=== PATIENT | female | born 1940 | race Caucasian/White ===

== ENCOUNTER 2016-11-26 16:05 | Inpatient (IN) | payer MEDICARE, OTHER ==
[~2016-11-26 16:05] MED LIST: LIDOCAINE 2% SYR 5 ML IV ONE; PROPOFOL 50ML PER ML IV ONE
[2016-11-26] MEDS ORDERED: OPTIRAY 350 100 ML VIAL HMH IV ONE (16:06)
[2016-11-26] MEDS ORDERED: DILAUDID 1 MG/ML AMP ONE (21:41)
[2016-11-26] MEDS ORDERED: ONDANSETRON 4 MG VIAL ONE (21:41)
[2016-11-26] MEDS ORDERED: SODIUM CHLORIDE 0.9% 1,000 ML ONE (22:42)
[2016-11-26] MEDS ORDERED: PIPER/TAZO 3.375 GM PYXIS ONE (22:48)
[2016-11-26] MEDS ORDERED: SODIUM CHLORIDE 0.9% 100 ML IV ONE (22:49)
[2016-11-26] MEDS ORDERED: SALINE FLUSH 10 ML FLUSH PRN (23:05)
[2016-11-27 00:45] VITALS: RESP 18
[2016-11-27] MEDS ORDERED: ONDANSETRON 4 MG VIAL ONE (01:08)
[2016-11-27] MEDS ORDERED: ONDANSETRON 4 MG VIAL IV PUSH PRN (04:45)
[2016-11-27] MEDS: SODIUM CHLORIDE 0.9% FLUSH BAG 500 ML IV SCH (06:00)
[2016-11-27 07:38] VITALS: BP_SYST 135; RESP 16; TEMP 97.7
[2016-11-27] MEDS ORDERED: KCL CR 20 MEQ TAB PO ONE (08:15)
[2016-11-27] MEDS: FAMOTIDINE 20 MG INJ IV SCH ×2 (08:37→08:40)
[2016-11-27] MEDS: MORPHINE 2 MG/ML SYR IV PRN ×3 (08:38→16:59)
[2016-11-27] MEDS: METRONIDAZOLE 500MG/100ML 100 ML IV SCH ×4 (08:41→23:05)
[2016-11-27] MEDS: SALINE FLUSH 10 ML FLUSH SCH ×2 (08:41→19:49)
[2016-11-27] MEDS ORDERED: LEVOFLOXACIN 750 MG/150 ML 150 ML IV SCH (09:00)
[2016-11-27] MEDS: LEVOTHYROXINE 0.1 MG TAB PO SCH (10:29)
[2016-11-27 11:02] VITALS: BP_SYST 154; RESP 18; TEMP 97.9
[2016-11-27 15:23] VITALS: BP_SYST 151; RESP 18; TEMP 97.4
[2016-11-27] MEDS: SODIUM CHLORIDE 0.9% 1,000 ML IV SCH (15:53)
[2016-11-27 20:38] VITALS: BP_SYST 110; RESP 16; TEMP 97.6
[2016-11-27 23:16] VITALS: BP_SYST 129; RESP 16; TEMP 98.6
[2016-11-28] VITALS (12 sets, daily range): BP systolic 130–190; RESP 14–20; TEMP 95.7–98.3
[2016-11-28] MEDS: SODIUM CHLORIDE 0.9% FLUSH BAG 500 ML IV SCH (05:42)
[2016-11-28] MEDS: LEVOTHYROXINE 0.1 MG TAB PO SCH (06:09)
[2016-11-28] MEDS: METRONIDAZOLE 500MG/100ML 100 ML IV SCH (07:51)
[2016-11-28] MEDS: SALINE FLUSH 10 ML FLUSH SCH ×2 (07:52→20:45)
[2016-11-28] MEDS: FAMOTIDINE 20 MG INJ IV SCH ×2 (07:52→20:45)
[2016-11-28] MEDS: NITROFURANTOIN 50 MG CAP PO SCH ×5 (09:00→20:45)
[2016-11-28] MEDS ORDERED: LIDOCAINE 1% BUFFERED 1 ML SYR INTRADERM PRN (10:35)
[2016-11-28] MEDS ORDERED: LACT RINGERS 1,000 ML IV SCH (10:35)
[2016-11-28] MEDS: MAGNESIUM SULF 1 GM/100 ML 100 ML IV SCH ×4 (13:01→17:58)
[2016-11-28] MEDS: SODIUM CHLORIDE 0.9% 1,000 ML IV SCH (20:46)
[2016-11-29] MEDS: LISINOPRIL/HCTZ 20-25 TAB PO SCH ×2 (00:03→08:05)
[2016-11-29 02:45] VITALS: BP_SYST 140; RESP 18; TEMP 96.8
[2016-11-29] MEDS: SODIUM CHLORIDE 0.9% FLUSH BAG 500 ML IV SCH (04:47)
[2016-11-29] MEDS: LEVOTHYROXINE 0.1 MG TAB PO SCH (06:18)
[2016-11-29 07:42] VITALS: BP_SYST 152; RESP 18; TEMP 97.1
[2016-11-29] MEDS: SALINE FLUSH 10 ML FLUSH SCH (08:04)
[2016-11-29] MEDS: NITROFURANTOIN 50 MG CAP PO SCH ×2 (08:04→12:12)
[2016-11-29] MEDS: FAMOTIDINE 20 MG INJ IV SCH (09:49)
[2016-11-29 12:16] VITALS: BP_SYST 150; RESP 18; TEMP 97.6
[2016-11-29 15:55] VITALS: BP_SYST 155; RESP 18; TEMP 97.8
[2016-11-29 15:56] VITALS: BP_SYST 150; RESP 18; TEMP 97.6
== END 2016-11-29 14:28 | disposition home or self-care (01) | DRG 689 ==
LOC: ENRESERVDT → ENRESERVTM → CANRESERV → ER 16:05 → EMR 23:05 → ENPENDDIS 23:05 → 4THE 11-27 00:38
PROVIDERS: ADMIT Family Medicine; ATTEND Family Medicine
PROC: 0DBN8ZX Excision of Sigmoid Colon, Via Natural or Artificial Opening Endoscopic, Diagnostic (ICD-10-PCS; principal; 2016-11-28 12:25)
DX: N39.0 Urinary tract infection, site not specified (principal); K55.039 Acute (reversible) ischemia of large intestine, extent unspecified; E83.42 Hypomagnesemia; B96.20 Unspecified Escherichia coli [E. coli] as the cause of diseases classified elsewhere; E03.9 Hypothyroidism, unspecified; I10 Essential (primary) hypertension
CPT/HCPCS: 36415; 74177; 80048; 80053; 81001; 82553; 83630; 83690; 83735; 84311; 84484; 85025; 87040; 87045; 87046; 87077; 87088; 87177; 87186; 87493; 88305; 94799; 96361; 96365; 96367; 96375; 99223; 99232; 99239